=== PATIENT | male | born 1975 | race Caucasian/White ===

== ENCOUNTER 2018-03-26 22:22 | Emergency (ER) | payer BC, OTHER ==
[~2018-03-26] VITALS: Ht 185.4 cm; Wt 104.3 kg
[2018-03-26 22:56] VITALS: BP 147/86
[2018-03-26] MEDS ORDERED: BENTYL PO STA (23:03)
[2018-03-26] MEDS ORDERED: PROTONIX IV IV STA (23:03)
[2018-03-26] MEDS ORDERED: BENTYL ONE (23:06)
[2018-03-26] MEDS ORDERED: PROTONIX IV IV ONE (23:13)
--- NOTE | 2018-03-26 23:13 | ER.PDOC ---
General Chief Complaint: Abdomen Pain Stated Complaint: ABD PAIN Time seen by MD: 10:40 Source: patient Exam Limitations: no limitations History of Present Illness Initial Comments Pt has had ruq and epig burning pain since 0530 this AM with brief temp relief by pepto . Pt went to see pcp this evening w/ temp 100.0 and was placed on cefdnir for sinuses and told probably reflux. Pt has had alexandra Severity/Quality: moderate Radiation: no radiation Associated Symptoms: heartburn Exacerbated by: nothing Relieved By: nothing Allergies: Coded Allergies: codeine (Verified Allergy, Severe, Shortness of Breath, 03/26/18) hydrocodone (Verified Allergy, Severe, Shortness of Breath, 03/26/18) Vital Signs First Vital Signs Date Time Temp Pulse Resp B/P (MAP) Pulse Ox O2 Delivery O2 Flow Rate FiO2 03/26/18 22:49 98.6 105 18 94 Room Air 03/26/18 22:56 147/86 (106) Last Vital Signs Date Time Temp Pulse Resp B/P (MAP) Pulse Ox O2 Delivery O2 Flow Rate FiO2 03/26/18 22:56 98.6 105 18 147/86 (106) 94 Room Air Past Medical History Medical History: GERD, hypertension Surgical History: cholecystectomy Social History Smoking: other Alcohol Use: none Drug Use: none Reviewed Nursing Reviewed: Vital Signs, Abn. Noted, Nursing Assessment Constitutional: fever EENTM: no symptoms reported, denies blurred vision Respiratory: no symptoms reported, denies cough, denies shortness of breath Cardiovascular: no symptoms reported, denies chest pain, denies irregular heart rate, denies syncope Gastrointestinal: abdominal pain, denies diarrhea, denies nausea, denies rectal bleeding, denies vomiting Genitourinary: no symptoms reported Musculoskeletal: no symptoms reported Skin: no symptoms reported Psychiatric/Neurological: no symptoms reported All Other Systems: Reviewed and Negative Physical Exam General Appearance: No Apparent Distress, WD/WN HEENT: PERRL/EOMI, Normal ENT Inspection, TMs Normal, Pharynx Normal Neck: Non-Tender, Full Range of Motion, Supple, Normal Inspection Respiratory: chest non-tender, lungs clear, normal breath sounds, no respiratory distress, no accessory muscle use Cardiovascular: Normal Peripheral Pulses, Regular Rate, Rhythm, No Edema, No Gallop, No JVD, No Murmur Gastrointestinal: Normal Bowel Sounds, No Organomegaly, No Pulsatile Mass, Soft , Tenderness (mild epig) Back: Normal Inspection, No CVA Tenderness, No Vertebral Tenderness Extremities: Normal Range of Motion, Non-Tender, Normal Inspection, No Pedal Edema, No Calf Tenderness, Normal Capillary Refill, Pelvis Stable 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, No Motor/Sensory Deficits, Alert, Normal Mood/Affect, Oriented x 3 Skin: Normal Color, Warm/Dry Progress Progress doubt pancreatitis, retained stone, consider GERD pud, spasm reexam 0025 pt improved, no change in exam Course Vitals & review Data Vital Sign - Last 24 Hours 03/26/18 03/26/18 22:49 22:56 Temp 98.6 98.6 Pulse 105 105 Resp 18 18 B/P (MAP) 147/86 (106) Pulse Ox 94 94 O2 Delivery Room Air Room Air Departure Time of Disposition: 00:30 Disposition: 01 HOME, SELF-CARE Impression: Primary Impression: Abdominal pain Additional Impression: Hyperglycemia, unspecified Condition: Stable Patient Instructions: Abdominal Pain Referrals: PCP,UNKNOWN (PCP) PRIMARY CARE PROVIDER Additional Instructions: see your Dr in 2 days, sooner if worsens and you need testing regarding diabetes Duration or Time Spent with Pa: 20 Problem Qualifiers Primary Impression: Abdominal pain Abdominal location: epigastric Qualified Codes: R10.13 - Epigastric pain TINA JACK MD March 26, 2018 23:13
[2018-03-26 23:17] LABS: BASOPHIL % 0.3 % (0.0-0.2); HEMOGLOBIN 16.2 g/dL (13.9-16.3); LYMPHOCYTES # 0.3 10^3/uL (1.0-4.8); LYMPHOCYTES % 3.4 % (24.0-44.0); MEAN CELL HGB 28.7 pg (26-34); MEAN CELL HGB CONCENTRATION 33.8 g/dL (33-37); MEAN CORP VOLUME 84.9 fL (78-100); MEAN PLATELET VOLUME 9.3 fL (7.8-11.0); MONOCYTES # 0.2 10^3/uL (0.3-0.8); NEUTROPHIL # 6.9 10^3/uL (1.8-7.7); RED CELL DISTRIBUTION WIDTH 13.1 % (11.5-14.5); WHITE BLOOD CELL 7.3 10^3/uL (4.5-11.0)
[2018-03-26 23:32] LABS: CALCIUM 8.7 mg/dL (8.4-10.5); CARBON DIOXIDE 23.5 mmol/L (20.0-32)
[2018-03-26 23:44] LABS: EOSINOPHIL 1 % (1-4); LYMPHOCYTE 1 % (25-36); MONOCYTE 2 % (3-9); SEGMENTED NEUTROPHILS 96 % (31-76)
[2018-03-27 00:08] LABS: BILIRUBIN,URINE NEGATIVE (NEGATIVE); UROBILINOGEN,URINE NORMAL (NEGATIVE)
[2018-03-27 00:16] LABS: APPEARANCE,URINE CLEAR (CLEAR); UA COLOR YELLOW (YELLOW)
[2018-03-27 00:17] LABS: WBC,URINE 0-2 WBC/HPF (0-2)
[2018-03-27 00:43] VITALS: BP 151/98
== END 2018-03-27 00:40 | disposition home or self-care (01) ==
LOC: ER 22:22
DX: R10.13 Epigastric pain (principal); R10.11 Right upper quadrant pain; R73.9 Hyperglycemia, unspecified; I10 Essential (primary) hypertension; K21.9 Gastro-esophageal reflux disease without esophagitis; Z88.5 Allergy status to narcotic agent
CPT/HCPCS: 36415; 80053; 81000; 82150; 83690; 85025; 85610; 85730; 86677; 96374; 99284; C9113

== ENCOUNTER 2020-09-05 10:39 | Emergency (ER) | payer BC, OTHER, SELFPAY ==
[~2020-09-05] VITALS: Ht 185.4 cm; Wt 108.0 kg
[2020-09-05 10:45] VITALS: BP 147/98
--- NOTE | 2020-09-05 10:56 | ER.PDOC ---
General Chief Complaint: Requesting Medical Care Stated Complaint: ABD PAIN Time seen by MD: 10:47 Source: patient Exam Limitations: no limitations History of Present Illness Initial Comments Patient c/o 8 day history of fever (day 1 only), sinus pressure/congestion, loss of taste. He also notes epigastric burning with food intake, but denies n/v/d or other abdominal c/o. Timing/Duration: gradual Severity: mild Associated Symptoms: fever/chills (day 1 only), sinus pain/drainage Allergies: Coded Allergies: codeine (Verified Allergy, Severe, Shortness of Breath, 03/26/18) hydrocodone (Verified Allergy, Severe, Shortness of Breath, 03/26/18) Constitutional: fever (on day 1, 99 degrees) EENTM: nose congestion (frontal and maxillary sinus pressure) Respiratory: no symptoms reported Cardiovascular: no symptoms reported Gastrointestinal: see HPI (burning epigastric pain with food intake) Genitourinary: no symptoms reported Musculoskeletal: no symptoms reported Skin: no symptoms reported Psychiatric/Neurological: no symptoms reported Endocrine: no symptoms reported Hematologic/Lymphatic: no symptoms reported All Other Systems: Reviewed and Negative Past Medical History Medical History: no pertinent history Surgical History: cholecystectomy Family History Significant Family History: no pertinent family hx Social History Smoking: non-smoker Alcohol Use: occassionally Drug Use: none Physical Exam General Appearance: alert, no distress Eye: eyes nml inspection, lids & conjunct. nml, PERRL, no nystagmus, pain on precuss of sinus (frontal and maxillary, mild) Ear: ear nml Nose: nose nml Throat: airway nml, pharyngeal erythema Neck: nml inspection, supple Respiratory: no resp.distress, breath sounds nml Abdomen: non-tender, no organomegaly CVS: reg rate & rhythm, heart sounds nml Skin: color nml, no rash, warm/dry Extremities: non-tender, nml ROM, no pedal edema NEURO/PSYCH: oriented x 3, mood/affect nml Results/Orders Results/Orders Orders - ALLYSSA DALEY DO Influenza A&B (09/05/20 11:14) Strep Screen (09/05/20 11:14) Novel Coronavirus 2019([facility]) (09/05/20 11:14) Vital Signs Date Time Temp Pulse Resp B/P (MAP) Pulse Ox O2 Delivery O2 Flow Rate FiO2 09/05/20 10:45 98.1 91 18 98 09/05/20 10:45 98.1 91 18 09/05/20 10:45 98.1 91 18 147/98 (114) 98 Room Air Laboratory Tests Test 09/05/20 11:30 Influenza Type A Antigen NEGATIVE (NEG) Influenza B Immunofluorescence NEGATIVE (NEG) Group A Streptococcus Screen POSITIVE (NEGATIVE) Progress Progress strep + ER DEPART Departure Time of Disposition: 12:34 Disposition: 01 HOME, SELF-CARE Impression: Primary Impression: Suspected 2019 novel coronavirus infection Additional Impressions: Gastritis Strep pharyngitis Condition: Stable Patient Instructions: Gastritis, Adult, Strep Infections, Viral Syndrome Referrals: PCP,UNKNOWN (PCP) PRIMARY CARE PROVIDER Additional Instructions: Sequester at home until your COVID19 results are known. Alternate Tylenol and Motrin per package instructions every 4 hours as needed for fever. Take OTC Omeprazole 20 mg once daily along with OTC Pepcid 20 mg once daily for 2 weeks. Maintain a bland diet (nothing spicy). Return to ER if you experience any difficulty breathing or swallowing, or for any emergent concerns. Follow up with your doctor next week for reevaluation. Duration or Time Spent with Pa: 20 min Problem Qualifiers Additional Impressions: Gastritis Gastritis type: unspecified gastritis Chronicity: unspecified Gastritis bleeding: without bleeding Qualified Codes: K29.70 - Gastritis, unspecified, without bleeding ALLYSSA DALEY DO Sep 05, 2020 10:56
[2020-09-05 11:45] VITALS: BP 148/89
[2020-09-05 12:45] VITALS: BP 140/85
--- NOTE | 2020-09-05 12:45 | NUR ---
COVID QUARANTINE INSTRUCTIONS PATIENT EDUCATED TO QUARANTINE IN HOME UNTIL NEGATIVE RESULTS OR 14 DAY QUARANTINE. EDUCATED PATIENT THAT ALL PERSONS WITHIN HOUSE MUST ALSO QUARANTINE FOR SAME TIME FRAME. PATIENT VERBALIZED UNDERSTANDING AND DENIES FURTHER QUESTIONS. COVID DISCHARGE PACKET GIVEN IN ADDITION TO EXIT CARE.
== END 2020-09-05 12:45 | disposition home or self-care (01) ==
LOC: ER 10:39
DX: K29.70 Gastritis, unspecified, without bleeding (principal); Z20.828 Contact with and (suspected) exposure to other viral communicable diseases; Z88.5 Allergy status to narcotic agent; Z90.49 Acquired absence of other specified parts of digestive tract
CPT/HCPCS: 87635; 87804; 87880; 99283

== ENCOUNTER 2020-09-06 22:25 | Emergency (ER) | payer OTHER, SELFPAY ==
[~2020-09-06] VITALS: Ht 185.4 cm; Wt 108.4 kg
[2020-09-06 22:37] VITALS: BP 170/105
[2020-09-06] MEDS ORDERED: LIDOCAINE VISCOUS ONE (22:48)
[2020-09-06] MEDS ORDERED: MYLANTA PO STA (22:49)
[2020-09-06] MEDS ORDERED: LIDOCAINE VISCOUS MM STA (22:49)
[2020-09-06] MEDS ORDERED: MYLANTA ONE (22:49)
--- NOTE | 2020-09-06 22:56 | ER.PDOC ---
General Chief Complaint: General Complaint Stated Complaint: EPIGASTRIC PAIN TRAVEL OUT OF US: No Time seen by MD: 22:52 Source: patient Exam Limitations: no limitations History of Present Illness Initial Comments Epigastric pain for 1 week, patient seen in the ED yesterday for same, tested positive for Strep and COVID-19 test pending. Pain radiates to lower retrosternal area. No SOB or cough. No nausea or vomiting. Severity: moderate Associated Symptoms: chest pain (lower retrosternal) Allergies: Coded Allergies: codeine (Verified Allergy, Severe, Shortness of Breath, 03/26/18) hydrocodone (Verified Allergy, Severe, Shortness of Breath, 03/26/18) Past Medical History Medical History: hypertension Surgical History: cholecystectomy Social History Alcohol Use: occassionally Drug Use: none Review of Systems Constitutional: no symptoms reported EENTM: no symptoms reported Respiratory: no symptoms reported Cardiovascular: see HPI Gastrointestinal: see HPI Genitourinary: no symptoms reported Musculoskeletal: no symptoms reported All Other Systems: Reviewed and Negative Physical Exam General Appearance: No Apparent Distress, WD/WN, Anxious Neck: Non-Tender, Full Range of Motion, Supple, Normal Inspection Respiratory: chest non-tender, lungs clear, normal breath sounds, no respiratory distress CVS: reg rate & rhythm, no murmur, no gallop, pulses nml, nml capillary refill Gastrointestinal: Normal Bowel Sounds, No Organomegaly, No Pulsatile Mass, Tenderness (epigastric) Back: Normal Inspection, No CVA Tenderness, No Vertebral Tenderness Extremities: Normal Range of Motion, Non-Tender, Normal Inspection, No Pedal Edema 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, No Motor/Sensory Deficits, Alert, Normal Mood/Affect, Oriented x 3 Skin: Normal Color, Warm/Dry Results/Orders Results/Orders Orders - NITO GARZA MD Cbc With Auto Diff (09/06/20 22:37) Comprehensive Metabolic Panel (09/06/20 22:37) Creatine Kinase (09/06/20 22:37) Troponin I (09/06/20 22:37) D-Dimer (09/06/20 22:37) Xr Chest 1v (09/06/20 22:37) Ekg-Routine (09/06/20 22:37) Lipase (09/06/20 22:49) Mag Hydrox/Aluminum Hyd/Simeth (Mylanta) (09/06/20 22:49) Lidocaine Hcl (Lidocaine Viscous) (09/06/20 22:49) Lidocaine Hcl (Lidocaine Viscous) (09/06/20 22:48) Mag Hydrox/Aluminum Hyd/Simeth (Mylanta) (09/06/20 22:49) Vital Signs Date Time Temp Pulse Resp B/P (MAP) Pulse Ox O2 Delivery O2 Flow Rate FiO2 09/06/20 22:37 98.6 96 16 98 09/06/20 22:37 98.6 85 16 170/105 (126) 98 Room Air 09/06/20 22:37 98.6 89 16 Administered Medications Medications (Trade) Dose Ordered Sig/Majo Route PRN Reason Start Time Stop Time Status Last Admin Dose Admin Lidocaine HCl (Lidocaine Viscous) 10 ml STAT STAT MM 09/06/20 22:49 09/06/20 22:52 DC 09/06/20 22:54 10 ML Laboratory Tests Test 09/06/20 22:50 White Blood Count 4.5 10^3/uL (4.5-11.0) Red Blood Count 5.61 10^6/uL (4.50-5.90) Hemoglobin 16.4 g/dL (13.9-16.3) H Hematocrit 47.3 % (37.0-53.0) Mean Corpuscular Volume 84.3 fL (78-100) Mean Corpuscular Hemoglobin 29.2 pg (26-34) Mean Corpuscular Hemoglobin Concent 34.7 g/dL (33-36.5) Red Cell Distribution Width 12.2 % (11.5-14.5) Platelet Count 272 10^3/uL (150-400) Mean Platelet Volume 8.9 fL (7.8-11.0) Neutrophils (%) (Auto) 48.5 % (41.0-85.0) Lymphocytes (%) (Auto) 36.0 % (24.0-44.0) Monocytes (%) (Auto) 14.0 % (5.0-12.0) H Neutrophils # (Auto) 2.2 10^3/uL (1.8-7.7) Lymphocytes # (Auto) 1.62 10^3/uL1 (1.0-4.8) Monocytes # (Auto) 0.6 10^3/uL (0.3-0.8) Absolute Immature Granulocyte (auto 0.02 10^3 u/L (0-2) Absolute Eosinophils (auto) 0.0 10^3/uL (0.0-0.2) Immature Granulocytes % 0.40 % (0.00-0.50) Eosinophils % 0.4 % (0.0-5.0) Basophils % 0.7 % (0.0-0.2) H Basophils # 0.0 10^3/uL (0.0-0.1) D-Dimer 0.19 mg/L (0.19-0.49) Sodium Level 139 mmol/L (132-145) Potassium Level 3.4 mmol/L (3.6-5.2) L Chloride Level 100.0 mmol/L (96-109) Carbon Dioxide Level 28.3 mmol/L (20.0-32) Anion Gap 14.1 Blood Urea Nitrogen 10 mg/dL (7-18) Creatinine 1.26 mg/dL (0.59-1.40) Estimated GFR () 74.9 (>/=60) Est GFR (CKD-EPI)(Non-Afr Polish) 61.9 (>/=60) BUN/Creatinine Ratio 7.0 Glucose Level 117 mg/dL (70-110) H Calcium Level 9.2 mg/dL (8.4-10.5) Total Bilirubin 0.7 mg/dL (0.2-1.0) Aspartate Amino Transferase (AST) 30 U/L (0-35) Alanine Aminotransferase (ALT) 60 U/L (12-78) Alkaline Phosphatase 115 U/L (50-136) Total Creatine Kinase 164 U/L (39-308) Troponin I < 0.02 ng/mL (0.00-0.05) Total Protein 7.9 g/dL (6.4-8.2) Albumin 4.0 g/dL (3.4-5.0) Globulin 3.9 Albumin/Globulin Ratio 1.025 Lipase 116 U/L (114-286) Progress Progress Patient is feeling better after GI cocktail. EKG/XRAY/CT/US EKG: NSR, no ST T wave changes EKG Comments: rate 89, normal axis XRAY: chest (No active disease) ER DEPART Departure Time of Disposition: 23:43 Disposition: 01 HOME, SELF-CARE Impression: Primary Impression: GERD with esophagitis Additional Impression: COVID-19 ruled out Condition: Improved Referrals: PCP,UNKNOWN (PCP) PRIMARY CARE PROVIDER Additional Instructions: Continue Omeprazole and Pepcid as directed F/U with your PCP in 2-3 days Self quarantine at home as instructed yesterday Return to ED if worsening or concerns Duration or Time Spent with Pa: 45 min Problem Qualifiers Primary Impression: GERD with esophagitis Esophagitis bleeding: without hemorrhage Qualified Codes: K21.00 - Gastro- esophageal reflux disease with esophagitis, without bleeding NITO GARZA MD Sep 06, 2020 22:56
[2020-09-06 22:59] LABS: BASOPHIL % 0.7 % (0.0-0.2); EOSINOPHIL % 0.4 % (0.0-5.0); LYMPHOCYTES # 1.62 10^3/uL1 (1.0-4.8); MEAN CORP HGB 29.2 pg (26-34); MONOCYTES # 0.6 10^3/uL (0.3-0.8); NEUTROPHIL # 2.2 10^3/uL (1.8-7.7); NEUTROPHILS % 48.5 % (41.0-85.0); PLATELET COUNT 272 10^3/uL (150-400); RED CELL DISTRIBUTION WIDTH 12.2 % (11.5-14.5)
--- NOTE | 2020-09-06 23:05 | PCM.EKG ---
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
--- NOTE | 2020-09-06 23:05 | DIREP ---
PROCEDURE:CHEST 1 VIEW COMPARISON:None. INDICATIONS:chest pain FINDINGS: LUNGS/PLEURA:No focal consolidation, pleural effusion or pneumothorax. VASCULATURE:Normal. Unremarkable pulmonary vasculature. CARDIAC:Normal. No cardiac silhouette abnormality or cardiomegaly. MEDIASTINUM:Normal. No visible mass or adenopathy. BONES:Normal. No fracture or visible bony lesion. OTHER:EKG leads overlie the chest. CONCLUSION:No active cardiopulmonary process demonstrated. Dictated by: Balbir Aceves M.D. on 09/06/2020 at 11:04 PM
[2020-09-06 23:19] LABS: ALANINE AMINOTRANSFERASE(ML) 60 U/L (12-78); ALKALINE PHOSPHATASE 115 U/L (50-136); ASPARTATE AMINO TRANSFERASE 30 U/L (0-35); CALCIUM 9.2 mg/dL (8.4-10.5); CARBON DIOXIDE 28.3 mmol/L (20.0-32); GLUCOSE 117 mg/dL (70-110)
[2020-09-06 23:52] VITALS: BP 163/100
== END 2020-09-06 23:55 | disposition home or self-care (01) ==
LOC: ER 22:25
DX: K21.01 Gastro-esophageal reflux disease with esophagitis, with bleeding (principal); I10 Essential (primary) hypertension; Z88.5 Allergy status to narcotic agent; Z90.49 Acquired absence of other specified parts of digestive tract
CPT/HCPCS: 36415; 71045; 80053; 82550; 83690; 84484; 85025; 85379; 93005; 99285; J3490